=== PATIENT | male | born 1985 | race Caucasian/White ===

== ENCOUNTER 2017-05-21 20:04 | Emergency (ER) | payer BC ==
[2017-05-21 20:31] LABS: #Eosinphils 0.1 thou/uL (0.0-0.7); #Lymphocytes 0.8 thou/uL (1.20-3.40); #Monocytes 0.8 thou/uL (0.11-0.59); %Basophils 0.1 % (0.0-1.0); %Eosinophils 0.8 % (0.0-10.0); %Lymphocytes 8.9 % (21.0-51.0); %Monocytes 9.3 % (0.0-10.0); Hematocrit 49.1 % (42.0-52.0); Red Blood Cell (RBC) Count 5.43 mill/uL (4.70-6.10); White Blood Cell (WBC) Count 8.6 thou/uL (4.8-10.8)
[2017-05-21] MEDS ORDERED: Acetaminophen 500 MG TAB ONE (20:31)
[2017-05-21] MEDS ORDERED: Ondansetron HCl/PF 4 MG/2 ML Vial ONE (20:34)
[2017-05-21 20:47] LABS: Lactic Acid - Sepsis 1.7 mmol/L (0.5-2.2)
[2017-05-21 20:52] LABS: ALT (SGPT) 61 U/L (8-55); AST (SGOT) 35 U/L (5-34); Alkaline Phosphatase 104 U/L (40-150); Anion Gap 16 mmol/L (10-20); BUN (Urea Nitrogen) 16 mg/dL (8.9-20.6); Bilirubin, Total 0.7 mg/dL (0.2-1.2); Calc. Creatinine Clearance 0 mL/min (70-130); Calcium 9.6 mg/dL (7.8-10.44); Carbon Dioxide 22 mmol/L (22-29); Chloride 104 mmol/L (98-107); Estimated GFR-MDRD 62; Globulin 3.7 g/dL (2.4-3.5); Protein, Total 8.2 g/dL (6.0-8.3)
[2017-05-21] MEDS ORDERED: Ibuprofen 800 MG TAB ONE (21:25)
[2017-05-21] MEDS ORDERED: Morphine 4 MG/ML VIAL ONE (21:31)
--- NOTE | 2017-05-21 21:33 | RAD ---
RADIOGRAPH CHEST 1 VIEW: HISTORY: 32-year-old male with fever. Sepsis alert. FINDINGS: There are no air space densities, pulmonary edema, pneumothorax, or cardiomegaly. The lateral costop hrenic angles are sharp. The lung apices are excluded from the field of view. IMPRESSION: No acute cardiopulmonary findings. melissa POS: C[facility]RIC
--- NOTE | 2017-06-17 20:53 | EKG ---
Test Reason : Blood Pressure : / mmHG Vent. Rate : 128 BPM Atrial Rate : 128 BPM P-R Int : 156 ms QRS Dur : 090 ms QT Int : 294 ms P-R-T Axes : 036 080 012 degrees QTc Int : 429 ms Sinus tachycardia Otherwise normal ECG Confirmed by MYA AMES MD ([id number]), desk editor TESS NICK ([id number]) on 06/17/2017 8:52:20 PM Referred By: Confirmed By:MYA AMES MD
== END 2017-05-21 21:28 | disposition home or self-care (01) ==
LOC: ERS 20:04
DX: J11.1 Influenza due to unidentified influenza virus with other respiratory manifestations (principal); K58.9 Irritable bowel syndrome, unspecified; F32.9 Major depressive disorder, single episode, unspecified; Z79.899 Other long term (current) drug therapy
CPT/HCPCS: 71010; 80053; 83605; 85025; 87040; 93005; 96361; 96374; J2270; J2405